=== PATIENT | male | born 1955 | race Caucasian/White ===

== ENCOUNTER → 2017-12-31 09:02 | Outpatient (CLI) | payer OTHER, SELFPAY ==
[2017-12-31 09:29] LABS: Add Manual Diff / Slide Review NO; Basophils Percent Auto 0.3 % (0-2); Eosinophils Percent Auto 2.3 % (2-4); Hematocrit 44.9 % (41-53); Hemoglobin 15.8 g/dL (13.5-17.5); Lymphocytes Percent Auto 27.9 % (25-40); Mean Corpuscular HGB Conc 35.1 % (30-36); Mean Corpuscular Hemoglobin 31.8 PG (26-34); Mean Corpuscular Volume 90.4 fL (80-100); Neutrophils Absolute Auto 2900 /uL (3000-5900); Neutrophils Percent Auto 60.5 % (50-75); Platelet Count 222 X10^3/uL (150-400); Red Blood Cell Count 4.97 X10^6/uL (4.5-5.9); Red Cell Distribution Width 12.9 % (11.6-14.8); White Blood Cell Count 4.8 X10^3/uL (4.5-11.0)
[2017-12-31 10:04] LABS: Alanine Aminotransferase 51 IU/L (21-72); Albumin 4.2 g/dL (3.5-5.0); Albumin Globulin Ratio 1.4 (1.0-2.8); Alkaline Phosphatase 58 U/L (38-126); Aspartate Aminotransferase 33 IU/L (17-59); BUN Creatinine Ratio 17.5 (6-22); Bilirubin Total 1.3 mg/dL (0.2-1.3); Blood Urea Nitrogen 21 mg/dL (9-20); Calcium 9.4 mg/dL (8.4-10.2); Carbon Dioxide 33 mmol/L (22-32); Chloride 104 mmol/L (98-107); Cholesterol 182 mg/dL (140-199); Estimated Glomerular Filt Rate > 60.0 mL/min (>60); Globulin 3.1 g/dL (1.7-4.1); Glucose 101 mg/dL (80-110); HDL Cholesterol 50 mg/dL (40-60); HEMOLYSIS 16 (0-50); LDL Cholesterol Calculated 116 mg/dL (<100); Potassium 5.1 mmol/L (3.4-5.1); Sodium 141 mmol/L (137-145); Total Protein 7.3 g/dL (6.3-8.2); Triglycerides 82 mg/dL (35-150)
[2017-12-31 10:34] LABS: Prostate Specific Antigen Scrn 1.93 ng/mL (0.1-4.0)
[2017-12-31 10:36] LABS: Thyroid Stimulating Hormone 2.62 uIU/mL (0.47-4.68)
== END ==
PROVIDERS: PCP Family Medicine; Visit Provider Family Medicine
DX: E78.2 Mixed hyperlipidemia (principal)
CPT/HCPCS: 36415; 80053; 80061; 84443; 85025; G0103

== ENCOUNTER 2018-04-22 11:41 | Day surgery (SDC) | payer OTHER, SELFPAY ==
[2018-04-22 13:01] VITALS: BP 140/85; PULSE 89; RESP 16; TEMP 36.5; O2SAT 97
--- NOTE | 2018-04-22 14:33 | PM.HP.1 ---
History of Present Illness Date Patient Seen: 04/22/18 Chief complaint: 48002 SCREENING COLONOSCOPY Narrative: 63 y/o male here for colon cancer screening colonoscopy. last colonoscopy 5 yrs ago. patient does not recall having any polyps removed. Patient denies abdominal pain, bloating, melena, blood per rectum, chronic constipation or change in caliber of stools. Patient History Family & Social History Family History: Reviewed 04/22/18 by Stephen Oliveros MD Social History: household members spouse,children other Hiking, photography, music Tobacco & Substance use: Smoking Status Never smoker alcohol intake current alcohol intake frequency a few times a week Meds Home Medications Medication Instructions Recorded Confirmed Type atorvastatin 10 mg tablet 10 mg PO HS #90 tab 12/15/17 04/22/18 Rx citalopram 20 mg tablet 20 mg PO QDAY #90 tab 12/15/17 04/22/18 Rx omeprazole magnesium [Prilosec OTC] 20 mg PO DAILY 04/22/18 04/22/18 History Allergies Allergy/AdvReac Type Severity Reaction Status Date / Time No Known Drug Allergies Allergy Verified 04/22/18 13:07 Review of Systems Review of Systems All systems reviewed & are unremarkable except as noted in HPI and below Exam Vital Signs (past 8 hours): - 04/22/18 13:01 Temperature 97.7 F Pulse Rate 89 Respiratory Rate 16 Blood Pressure 140/85 Pulse Oximetry 97 Oxygen Delivery Method Room Air Const General: cooperative, healthy appearing and comfortable HENMT Head: normal to inspection, normocephalic and atraumatic Neck Neck: supple Resp Effort & Inspection: normal respiratory effort Cardio Rate: regular rate Rhythm: regular rhythm GI Inspection: normal to inspection Palpation: soft Skin General: no rashes or lesions noted Neuro General: alert and awake Cognition: normal cognition Motor: no movement abnormalities noted Psych Appearance: grossly normal Mood: congruent mood Affect: normal affect Thought Process: normal Thought Content: normal Judgment: judgment good Assessment & Plan Plan: Assessment/Plan Narrative: colon cancer interval screening colonoscopy. procedure, benefits, risks including bleeding and perforation reviewed with patient.
[2018-04-22] MEDS: MIDAZOLAM 5 MG/5 ML VIAL IV (14:50)
[2018-04-22] MEDS: diphenhydrAMINE 50 MG/ML VIAL IV (15:05)
[2018-04-22] MEDS: fentaNYL 250 MCG/5 ML INJ IV (15:05)
[2018-04-22 15:31] VITALS: BP 123/83; PULSE 77; RESP 13; TEMP 36.1; O2SAT 96
[2018-04-22 15:35] VITALS: BP 117/83; PULSE 80; RESP 14; O2SAT 96
[2018-04-22 15:40] VITALS: BP 120/81; PULSE 76; RESP 12; O2SAT 96
[2018-04-22 15:45] VITALS: BP 117/78; PULSE 79; RESP 16; O2SAT 96
[2018-04-22 15:55] VITALS: BP 121/75; PULSE 91; RESP 15; O2SAT 95
--- NOTE | 2018-04-22 16:32 | PM.OP.ENDO ---
Operative Date/Time/Diagnoses Date of procedure: 04/22/18 Pre-op diagnosis: colon cancer screening Post-op diagnosis: same Procedure & Clinicians Study performed: Colonoscopy Same procedure as scheduled: Yes Surgeon: Stephen Oliveros Procedure Notes SCOAP/Timeout: done Procedure in detail: Patient reported no problem with prep. Patient taken from preoperative area to endoscopy suite with adequate iv access on guerny. Timeout was performed. IV moderate sedation was titrated throughout the case while patient was continuously monitored. At total of 7mg IV Versed and 150mcg IV fentanyl were required. Inspection of anal orifice revealed no skin lesions. Digital exam failed to palpate any lesions. A well lubricated Fuji colonoscope was gently introduced through the anus and advanced to the cecum using the dither-torque technique. Confirmation of reaching the cecum was acheived by identifying the appendiceal orifice and ileocecal valve. The mucosa was evaluated during the withdrawal of colonoscope. Retroflexion of the endoscope in lower third of rectum revealed mild internal hemorrhoids. Residual insufflation was evacuated. Patient tolerated procedure well and was transferred to PACU in stable condition. Scope withdrawal time: 9 Sedation minutes: 16 Specimen(s): none sent Complications: none Recommendations: Colonscopy in 10 years Disposition: same day surgery
== END 2018-04-22 16:02 | disposition home or self-care (01) ==
LOC: ENDO 11:43
PROVIDERS: PCP Family Medicine; Visit Provider Surgery
PROC: 0DJD8ZZ Inspection of Lower Intestinal Tract, Via Natural or Artificial Opening Endoscopic (ICD-10-PCS; CPT 45378; principal; 2018-04-22 12:45)
DX: Z12.11 Encounter for screening for malignant neoplasm of colon (principal); K64.8 Other hemorrhoids
CPT/HCPCS: 45378; 99152; J1200; J2250; J3010

== ENCOUNTER → 2019-07-18 07:47 | Outpatient (CLI) | payer OTHER, SELFPAY ==
[2019-07-18 08:38] LABS: Add Manual Diff / Slide Review NO; Basophils Absolute Auto 0 /uL (0-100); Basophils Percent Auto 0.3 % (0-2); Eosinophils Absolute Auto 100 /uL (0-450); Eosinophils Percent Auto 2.1 % (2-4); Hematocrit 45.6 % (41-53); Hemoglobin 15.8 g/dL (13.5-17.5); Lymphocytes Absolute Auto 1900 /uL (1100-4500); Lymphocytes Percent Auto 31.4 % (25-40); Mean Corpuscular HGB Conc 34.5 % (30-36); Mean Corpuscular Hemoglobin 31.1 PG (26-34); Monocytes Absolute Auto 600 /uL (0-900); Neutrophils Absolute Auto 3500 /uL (1500-7000); Neutrophils Percent Auto 56.2 % (50-75); Platelet Count 239 X10^3/uL (150-400); Red Blood Cell Count 5.06 X10^6/uL (4.5-5.9); Red Cell Distribution Width 13.4 % (11.6-14.8); White Blood Cell Count 6.2 X10^3/uL (4.5-11.0)
[2019-07-18 08:44] LABS: Alanine Aminotransferase 53 IU/L (<50); Albumin 4.3 g/dL (3.5-5.0); Albumin Globulin Ratio 1.3 (1.0-2.8); Alkaline Phosphatase 65 U/L (38-126); Aspartate Aminotransferase 33 IU/L (17-59); BUN Creatinine Ratio 14.6 (6-22); Bilirubin Total 1.2 mg/dL (0.2-1.3); Blood Urea Nitrogen 19 mg/dL (9-20); Calcium 9.4 mg/dL (8.4-10.2); Carbon Dioxide 29 mmol/L (22-32); Chloride 103 mmol/L (98-107); Cholesterol 179 mg/dL (140-199); Estimated Glomerular Filt Rate 55.9 mL/min (>60); Globulin 3.4 g/dL (1.7-4.1); Glucose 109 mg/dL (80-110); HDL Cholesterol 40 mg/dL (40-60); HEMOLYSIS < 15 (0-50); LDL Cholesterol Calculated 108 mg/dL (<100); Potassium 4.1 mmol/L (3.4-5.1); Sodium 140 mmol/L (137-145); Total Protein 7.7 g/dL (6.3-8.2); Triglycerides 154 mg/dL (35-150)
[2019-07-18 09:08] LABS: Prostate Specific Antigen Scrn 2.16 ng/mL (0.1-4.0)
[2019-07-18 09:19] LABS: Thyroid Stimulating Hormone 2.96 uIU/mL (0.47-4.68)
== END ==
PROVIDERS: PCP Family Medicine; Referring Provider Family Medicine; Visit Provider Family Medicine
DX: E78.2 Mixed hyperlipidemia (principal)
CPT/HCPCS: 36415; 80053; 80061; 84443; 85025; G0103

== ENCOUNTER → 2020-09-13 16:12 | Outpatient (CLI) | payer OTHER, SELFPAY ==
[2020-09-13] MEDS: COVID-19 VACC #1, MRNA(MOD) 100 MCG/0.5 ML VIAL IM (16:15)
== END ==
PROVIDERS: PCP Family Medicine; Visit Provider Internal Medicine
DX: Z23 Encounter for immunization (principal)
CPT/HCPCS: 0011A; 91301

== ENCOUNTER → 2020-10-11 15:13 | Outpatient (CLI) | payer OTHER, SELFPAY ==
[2020-10-11] MEDS: COVID-19 VACC #2, MRNA(MOD) 100 MCG/0.5 ML VIAL IM (15:16)
== END ==
PROVIDERS: PCP Family Medicine; Visit Provider Internal Medicine
DX: Z23 Encounter for immunization (principal)
CPT/HCPCS: 0012A; 91301

== ENCOUNTER → 2020-11-16 09:32 | Outpatient (CLI) | payer OTHER, SELFPAY ==
[2020-11-16 10:30] LABS: Add Manual Diff / Slide Review NO; Basophils Absolute Auto 0 /uL (0-100); Basophils Percent Auto 0.1 % (0-2); Eosinophils Absolute Auto 100 /uL (0-450); Eosinophils Percent Auto 2.2 % (2-4); Hematocrit 48.7 % (41-53); Lymphocytes Absolute Auto 1800 /uL (1100-4500); Lymphocytes Percent Auto 32.2 % (25-40); Mean Corpuscular Hemoglobin 30.2 PG (26-34); Mean Corpuscular Volume 91.8 fL (80-100); Monocytes Absolute Auto 600 /uL (0-900); Monocytes Percent Auto 10.2 % (3-14); Neutrophils Absolute Auto 3100 /uL (1500-7000); Neutrophils Percent Auto 55.3 % (50-75); Platelet Count 239 X10^3/uL (150-400); Red Blood Cell Count 5.31 X10^6/uL (4.5-5.9); Red Cell Distribution Width 13.3 % (11.6-14.8); White Blood Cell Count 5.7 X10^3/uL (4.5-11.0)
[2020-11-16 10:41] LABS: Hemoglobin A1C% w Est Avg Glu 5.5 % (4.0-6.0)
[2020-11-16 10:52] LABS: Alanine Aminotransferase 42 IU/L (<50); Albumin 4.3 g/dL (3.5-5.0); Albumin Globulin Ratio 1.4 (1.0-2.8); Alkaline Phosphatase 70 U/L (38-126); Aspartate Aminotransferase 30 IU/L (17-59); BUN Creatinine Ratio 16.7 (6-22); Bilirubin Total 1.2 mg/dL (0.2-1.3); Blood Urea Nitrogen 21 mg/dL (9-20); Calcium 9.9 mg/dL (8.4-10.2); Carbon Dioxide 27 mmol/L (22-32); Chloride 105 mmol/L (98-107); Cholesterol 177 mg/dL (140-199); Estimated Glomerular Filt Rate 57.8 mL/min (>60); Globulin 3.1 g/dL (1.7-4.1); Glucose 95 mg/dL (80-110); HDL Cholesterol 53 mg/dL (40-60); HEMOLYSIS < 15 (0-50); LDL Cholesterol Calculated 97 mg/dL (<100); Potassium 4.6 mmol/L (3.4-5.1); Sodium 138 mmol/L (137-145); Total Protein 7.4 g/dL (6.3-8.2); Triglycerides 135 mg/dL (35-150)
[2020-11-16 11:16] LABS: TSH w/ Reflex to FT4 1.93 uIU/mL (0.47-4.68)
== END ==
PROVIDERS: PCP Family Medicine; Referring Provider Family Medicine; Visit Provider Family Medicine
DX: E78.2 Mixed hyperlipidemia (principal); F34.1 Dysthymic disorder; N53.9 Unspecified male sexual dysfunction; Z12.5 Encounter for screening for malignant neoplasm of prostate
CPT/HCPCS: 36415; 80053; 80061; 83036; 84443; 85025; G0103

== ENCOUNTER → 2022-02-28 08:59 | Outpatient (CLI) | payer OTHER, SELFPAY ==
[2022-02-28 10:02] LABS: Add Manual Diff / Slide Review NO; Basophils Absolute Auto 0 /uL (0-100); Basophils Percent Auto 0.3 % (0-2); Eosinophils Absolute Auto 300 /uL (0-450); Eosinophils Percent Auto 5.2 % (2-4); Hematocrit 45.9 % (41-53); Hemoglobin 15.9 g/dL (13.5-17.5); Lymphocytes Absolute Auto 1800 /uL (1100-4500); Lymphocytes Percent Auto 29.2 % (25-40); Mean Corpuscular HGB Conc 34.7 % (30-36); Mean Corpuscular Volume 89.5 fL (80-100); Monocytes Absolute Auto 600 /uL (0-900); Monocytes Percent Auto 9.8 % (3-14); Neutrophils Absolute Auto 3300 /uL (1500-7000); Neutrophils Percent Auto 55.5 % (50-75); Platelet Count 231 X10^3/uL (150-400); Red Blood Cell Count 5.13 X10^6/uL (4.5-5.9); Red Cell Distribution Width 13.2 % (11.6-14.8)
[2022-02-28 10:38] LABS: Alanine Aminotransferase 36 IU/L (<50); Albumin 4.1 g/dL (3.5-5.0); Albumin Globulin Ratio 1.3 (1.0-2.8); Alkaline Phosphatase 70 U/L (38-126); Aspartate Aminotransferase 28 IU/L (17-59); BUN Creatinine Ratio 16.1 (6-22); Bilirubin Total 1.4 mg/dL (0.2-1.3); Blood Urea Nitrogen 20 mg/dL (9-20); Carbon Dioxide 27 mmol/L (22-32); Chloride 104 mmol/L (98-107); Cholesterol 183 mg/dL (140-199); Estimated Glomerular Filt Rate > 60 mL/min (>60); Globulin 3.1 g/dL (1.7-4.1); Glucose 85 mg/dL (80-110); HDL Cholesterol 46 mg/dL (40-60); HEMOLYSIS < 15 (0-50); LDL Cholesterol Calculated 109 mg/dL (<100); Potassium 4.6 mmol/L (3.4-5.1); Sodium 140 mmol/L (137-145); Total Protein 7.2 g/dL (6.3-8.2); Triglycerides 138 mg/dL (35-150)
[2022-02-28 10:39] LABS: Creatinine Urine Random 148.6 mg/dL
[2022-02-28 10:48] LABS: Microalbumin Urine Random 0.6 mg/dL (0-1.6)
[2022-02-28 11:09] LABS: Prostate Specific Antigen Scrn 2.07 ng/mL (0.1-4.0)
== END ==
PROVIDERS: PCP Family Medicine; Referring Provider Family Medicine; Visit Provider Family Medicine
DX: E78.2 Mixed hyperlipidemia (principal); F34.1 Dysthymic disorder; F90.0 Attention-deficit hyperactivity disorder, predominantly inattentive type; R94.4 Abnormal results of kidney function studies; Z12.5 Encounter for screening for malignant neoplasm of prostate
CPT/HCPCS: 36415; 80053; 80061; 82043; 82570; 85025; G0103

== ENCOUNTER → 2023-10-30 13:27 | Outpatient (CLI) | payer OTHER, SELFPAY ==
--- NOTE | 2023-10-30 13:30 | DI.ECHO.S_ITS ---
[facility]+ [facility] : : [address] : : [place] : : [id number] : : Phone: [phone] Echocardiogram Report + + :Name: AJITH MORAN Study Date: 10/30/2023 Height: 72 in : :Hospital ReadingLocation: Weight: 239 lb : : Gender: Male BSA: 2.3 m2 : :: 1955 Age: 68 yrs BP: 133/84 mmHg: :Reason For Study: MUMUR : :Ordering Physician: OSMEL, : :BRO Performed By: Claribel Leyva : :Referring: BRO BOLIVAR : + + Interpretation Summary 1. The left ventricular contractility is normal. Estimated ejection fraction is greater than 60% with no segmental wall motion abnormalities. Grade 1 diastolic dysfunction noted. Mild concentric left ventricular hypertrophy present. 2. The right ventricular contractility is normal. 3. The right ventricle appears to be borderline enlarged. All other cardiac chambers are of normal size. 4. The aortic valve was not well-visualized. There is mild fibrocalcific changes noted. Mild aortic valvular stenosis with mean gradient 22 mmHg present. Mild aortic insufficiency noted. 5. No obvious intracardiac shunts noted. 6. No obvious intracardiac masses nor thrombi appreciated. 7. No hemodynamically significant pericardial effusion identified. Conclusion: Normal biventricular systolic function with mild combined aortic insufficiency and stenosis. Procedure: A two-dimensional transthoracic echocardiogram with color flow and Doppler was performed. The study quality was technically adequate. There is no prior echocardiogram noted for this patient. The patient was in sinus rhythm with heart rates between 67-75 bpm during the exam. Left Ventricle: The left ventricle is normal in size. Left ventricular wall thickness is mildly increased. The ejection fraction is estimated to be 60- 65%. Right Ventricle: The right ventricle is borderline dilated. The right ventricular systolic function is normal. Atria: The left atrial size is normal. Right atrial size is normal. There is no Doppler evidence for an interatrial shunt. Mitral Valve: The mitral valve is normal in structure and function. There is trace mitral regurgitation. Aortic Valve: The aortic valve is mildly calcified. The aortic valve is not well visualized. The peak aortic velocity is 3.1 m/sec. The aortic valve mean gradient is 22 mmHg. The calculated aortic valve area is 1.1 cm2. There is mild aortic regurgitation. Tricuspid Valve: The tricuspid valve is not well visualized, but is grossly normal. Pulmonary artery pressures cannot be estimated because of the lack of a measurable TR jet velocity. There is a trace or physiologic amount of tricuspid regurgitation. Pulmonic Valve: The pulmonic valve leaflets are thin and pliable; valve motion is normal. There is no pulmonic valvular regurgitation. Great Vessels: The aortic root is normal size. The dimensions of the ascending aorta are normal. The IVC is of normal diameter and collapses greater than 50% with a sniff. This suggests a low right atrial pressure of 3 mm Hg. Pericardium/ Pleura There is no pericardial effusion. There is an anterior echo-free space consistent with a fat pad. There is no pleural effusion. MMode/2D Measurements & Calculations LVIDd: 4.9 cm LVOT diam: 2.0 cm LVIDs: 3.1 cm Ao root diam: 3.7 cm FS: 37.2 % asc Aorta Diam: 3.1 cm IVSd: 1.1 cm Ao Arch Diam (Prox Trans): 2.9 cm LVPWd: 1.1 cm LV glasgow. diameter/BSA (cm/m^2): 2.1 LV sys. diameter/BSA (cm/m^2): 1.3 LA A2 area: 16.3 cm2 RA long axis: 3.8 cm LA A4 area: 12.2 cm2 RA area: 10.4 cm2 LA length (vol): 4.1 cm RA vol: 23.9 ml LA vol: 40.7 ml RA : 10.4 ml/m2 LA vol index: 17.7 ml/m2 IVC diam: 1.1 cm RVD1 (basal): 4.2 cm RVD2 (mid): 3.6 cm TAPSE: 2.5 cm Doppler Measurements & Calculations Ao V2 max: 309.1 cm/sec LVOT Max Madhav: 107.6 cm/sec Ao V2 mean: 211.5 cm/sec LV V1 max P.6 mmHg Ao max P.9 mmHg LV V1 VTI: 24.3 cm Ao mean P.2 mmHg ZHANG(I,D): 1.2 cm2 Ao V2 VTI: 64.3 cm ZHANG(V,D): 1.1 cm2 sev ratio: 0.38 ZHANG indexed to BSA (cm^2/m^2): 0.52 MV E max madhav: 66.3 cm/sec PA V2 max: 90.4 cm/sec MV A max madhav: 85.2 cm/sec PA V2 mean: 65.9 cm/sec MV E/A: 0.78 PA mean P.9 mmHg Med Peak E' Madhav: 5.1 cm/sec PA pr(Accel): 39.6 mmHg E/E' med: 13.1 Lat Peak E' Madhav: 6.0 cm/sec E/E' lat: 11.0 E/e' average: 12.1 MV dec time: 0.27 sec SV(LVOT): 77.2 ml Reading Physician:
== END ==
PROVIDERS: PCP Family Medicine; Referring Provider Family Medicine; Visit Provider Family Medicine
DX: Z82.49 Family history of ischemic heart disease and other diseases of the circulatory system (principal); I35.1 Nonrheumatic aortic (valve) insufficiency
CPT/HCPCS: 93306

== ENCOUNTER → 2023-11-11 08:02 | Outpatient (CLI) | payer OTHER, SELFPAY ==
[2023-11-11 09:00] LABS: Add Manual Diff / Slide Review NO; Basophils Absolute Auto 0 /uL (0-100); Basophils Percent Auto 0.3 % (0-2); Eosinophils Absolute Auto 200 /uL (0-450); Eosinophils Percent Auto 3.9 % (2-4); Hematocrit 46.5 % (41-53); Hemoglobin 15.7 g/dL (13.5-17.5); Lymphocytes Absolute Auto 1700 /uL (1100-4500); Lymphocytes Percent Auto 30.1 % (25-40); Mean Corpuscular HGB Conc 33.7 % (30-36); Mean Corpuscular Hemoglobin 31.1 PG (26-34); Mean Corpuscular Volume 92.4 fL (80-100); Monocytes Absolute Auto 600 /uL (0-900); Monocytes Percent Auto 9.8 % (3-14); Neutrophils Absolute Auto 3200 /uL (1500-7000); Neutrophils Percent Auto 55.9 % (50-75); Platelet Count 247 X10^3/uL (150-400); Red Blood Cell Count 5.03 X10^6/uL (4.5-5.9); Red Cell Distribution Width 13.1 % (11.6-14.8); White Blood Cell Count 5.6 X10^3/uL (4.5-11.0)
[2023-11-11 09:31] LABS: Alanine Aminotransferase 33 IU/L (<50); Albumin 4.2 g/dL (3.5-5.0); Albumin Globulin Ratio 1.6 (1.0-2.8); Alkaline Phosphatase 59 U/L (38-126); Aspartate Aminotransferase 26 IU/L (17-59); BUN Creatinine Ratio 12.4 (6-22); Bilirubin Total 1.4 mg/dL (0.2-1.3); Blood Urea Nitrogen 16 mg/dL (9-20); Calcium 9.2 mg/dL (8.4-10.2); Carbon Dioxide 30 mmol/L (22-32); Chloride 108 mmol/L (98-107); Cholesterol 150 mg/dL (140-199); Estimated Glomerular Filt Rate > 60 mL/min (>60); Globulin 2.7 g/dL (1.7-4.1); Glucose 101 mg/dL (80-110); HDL Cholesterol 55 mg/dL (40-60); HEMOLYSIS < 15 (0-50); LDL Cholesterol Calculated 73 mg/dL (<100); Sodium 140 mmol/L (137-145); Total Protein 6.9 g/dL (6.3-8.2); Triglycerides 111 mg/dL (35-150)
[2023-11-11 09:32] LABS: Potassium 5.4 mmol/L (3.4-5.1)
[2023-11-11 09:55] LABS: TSH w/ Reflex to FT4 1.78 uIU/mL (0.47-4.68)
[2023-11-11 10:04] LABS: Prostate Specific Antigen Scrn 1.88 ng/mL (0.1-4.0)
[2023-11-12 03:10] LABS: Apolipoprotein B 69 mg/dL (<90)
[2023-11-12 15:52] LABS: Hep C Virus Ab w/Reflex Quant NEGATIVE s/c (NEGATIVE)
[2023-11-14 04:54] LABS: Lipoprotein (a) 129.2 nmol/L (<75.0)
== END ==
PROVIDERS: PCP Family Medicine; Referring Provider Family Medicine; Visit Provider Family Medicine
DX: Z12.5 Encounter for screening for malignant neoplasm of prostate (principal); Z12.11 Encounter for screening for malignant neoplasm of colon; F90.9 Attention-deficit hyperactivity disorder, unspecified type; E78.2 Mixed hyperlipidemia; Z80.0 Family history of malignant neoplasm of digestive organs; Z82.49 Family history of ischemic heart disease and other diseases of the circulatory system; F84.0 Autistic disorder
CPT/HCPCS: 36415; 80053; 80061; 82172; 83695; 84443; 85025; 86803; G0103

== ENCOUNTER 2024-09-16 22:57 | Emergency (ER) | payer OTHER, SELFPAY ==
[2024-09-16 23:00] VITALS: BP 156/78; PULSE 89; RESP 17; TEMP 36.7; O2SAT 96; BMI 31.4
--- NOTE | 2024-09-16 23:22 | DI.CT.S_ITS ---
PROCEDURE: CT HEAD/BRAIN WO CON INDICATIONS: fall, facial trauma, damaged teeth TECHNIQUE: Noncontrast 4.5 mm thick angled axial sections acquired from the foramen magnum to the vertex, with coronal and sagittal reformats. For radiation dose reduction, the following was used: automated exposure control, adjustment of mA and/or kV according to patient size. COMPARISON: None. FINDINGS: Image quality: Diagnostic. CSF spaces: Basal cisterns are patent. No extra-axial fluid collections. Ventricles are normal in size and shape. Brain: No midline shift. No intracranial masses or hemorrhage. Doll-white matter interface is normal. Skull and face: Calvarium and visualized facial bones are intact, without suspicious lesions. Sinuses: Visualized sinuses and mastoids are clear. IMPRESSION: 1. No CT evidence of acute intracranial trauma. 2. No significant soft tissue injury or underlying fracture. Dictated by: La Jane M.D. on 09/17/2024 at 0:13 Approved by: La Jane M.D. on 09/17/2024 at 0:14
--- NOTE | 2024-09-16 23:22 | DI.CT.S_ITS ---
PROCEDURE: CT FACIAL BONES WO CON INDICATIONS: fall, facial trauma, damaged teeth TECHNIQUE: Noncontrast 2.5 mm thick axial images acquired from the mandible through the frontal sinuses, with coronal and sagittal reformatting. For radiation dose reduction, the following was used: automated exposure control, adjustment of mA and/or kV according to patient size. COMPARISON: None. FINDINGS: Image quality: Excellent. Bones and teeth: There is fracture of the caudal most portion at base of the anterior maxillary spine involving the roots of the medial maxillary incisors. The right medial maxillary incisor is fractured. Nasal bones and nasal septum are intact. There is chronic leftward deviation in the midportion. No occlusion nasal passages. Orbital noble are intact. Sinus noble show no fracture or deformity. Visualized portions of the mandible demonstrate no fractures or subluxation. Zygomatic arches are intact. Pterygoid plates are intact. Visualized portions of the skull base and auditory canals are intact. Sinuses: Paranasal sinuses are aerated, without fluid levels, mucosal thickening, or mucoceles. Mastoid air cells are aerated. Soft tissues: There is a soft tissue laceration defect over the anterior maxilla without adjacent fluid collection. No debris. No edema, masses, or fluid collections. No enlarged lymph nodes. Vascular: Visualized vascular structures appear normal in the absence of contrast. Bony vascular foramina and canals are intact. IMPRESSION: Anterior maxillary spine base fracture extending to the roots the maxillary incisors. Soft tissue defect without underlying radiodense foreign body. Dictated by: La Jane M.D. on 09/17/2024 at 0:36 Approved by: La Jane M.D. on 09/17/2024 at 0:43
--- NOTE | 2024-09-16 23:22 | DI.CT.S_ITS ---
PROCEDURE: CT CERVICAL SPINE WO CON INDICATIONS: fall, facial trauma, damaged teeth TECHNIQUE: Noncontrast 3 mm thick sections acquired from the skull base to the T4 level. Sagittal and coronal reformats were then constructed. For radiation dose reduction, the following was used: automated exposure control, adjustment of mA and/or kV according to patient size. COMPARISON: None. FINDINGS: Image quality: Excellent. Bones: The craniocervical junction is intact. Mild degenerative space loss and spurring at the atlantodental interval. Degenerative disc height loss from C4 through C7. Mild endplate osteophytes. No cervical vertebral body fractures or pathologic subluxation. Soft tissues: Prevertebral soft tissues are normal in thickness. No paravertebral hematomas. No apical pneumothoraces. IMPRESSION: No displaced fracture or traumatic subluxation. Dictated by: La Jane M.D. on 09/17/2024 at 1:12 Approved by: La Jane M.D. on 09/17/2024 at 1:14
[2024-09-17] VITALS (11 sets, daily range): BP systolic 103–142; BP diastolic 68–78; PULSE 83–112; RESP 18; O2SAT 92–98
--- NOTE | 2024-09-17 03:17 | PC.NURSE ---
Pt left hand has on the lateral edge some non-bleeding abrasions. Long upper lip (philtrum) wound. Both areas are open to air and patient has slight pain, with swelling. Dental issues resulted from the fall. Tooth #8 is chipped and dangling in place. Tooth #9 is slightly pulled from the root.
--- NOTE | 2024-09-17 05:01 | ED_ITS ---
HPI - Fall General Chief Complaint: Fall Stated Complaint: fell faceplanted on sidewalk Time Seen by Provider: 09/17/24 05:00 Source: patient, RN notes reviewed and old records reviewed Mode of arrival: Ambulatory Limitations: no limitations History of Present Illness HPI Narrative: 69-year-old male history of dyslipidemia, ADHD who states he tripped and fell on his face messing up his teeth. Denies any loss of consciousness. Denies any neck pain. Patient states mostly pain in the tooth nose and upper lip. Patient states he was some abrasions on his hands but no other injuries. Denies any chest pain or shortness of breath or back pain. No other GI or urinary symptoms. Patient states he is unsure if his tetanus is up-to-date. Does not take any aspirin or anticoagulants. Patient states he does have a dentist but has not seen him in a long time. Denies any allergies to medications. No tobacco, occasional alcohol, no recreational drugs. Related Data Home Medications Medication Instructions Recorded Confirmed citalopram 20 mg tablet (Celexa) 20 mg PO DAILY 07/19/24 07/19/24 Previous Rx's Medication Instructions Recorded atorvastatin 10 mg tablet 10 mg PO QPM #90 tabs 01/18/24 citalopram 10 mg tablet See Rx Instructions .Route 06/13/24 .COMPLEX #90 tabs bupropion HCl 150 mg 24 hr tablet, 150 mg PO QAM #90 tabs 07/19/24 extended release dextroamphetamine-amphetamine 5 mg 5 mg PO DAILY PRN adhd #90 tabs 07/19/24 tablet (Adderall) dextroamphetamine-amphetamine ER 20 mg PO DAILY #30 caps 09/02/24 20 mg 24hr capsule,extend release (Adderall XR) amoxicillin 875 mg-potassium 1 tab PO BID #20 tabs 09/17/24 clavulanate 125 mg tablet Allergies Allergy/AdvReac Type Severity Reaction Status Date / Time No Known Drug Allergies Allergy Verified 07/19/24 08:58 Review of Systems Review of Systems ROS Unobtainable: All systems reviewed & are unremarkable except as noted in HPI and below Patient History Medical History Diastolic dysfunction Aortic stenosis Family hx of colon cancer ADHD GERD (gastroesophageal reflux disease) Family History Mother Cancer Father Congestive heart failure Diabetes mellitus Family/Other Cancer Father Diabetes mellitus Heart disease Mother Cancer Social History number of children: 2 household members: spouse and children pets and animals: No education level: college 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 travel history: other other: Hiking, photography, music seatbelt use: always water heater temp set < 120 deg: Yes working smoke detector in home: Yes fire extinguisher in home: No carbon monox detector in home: No firearms in home: No Smoking Status: Never smoker second hand exposure: Yes (childhood ) alcohol intake: current (3 drinks per week ) substance use type: does not use during the past year weight has: decreased > 10 lbs well-balanced diet: daily or most days daily servings fruits/ve-4 caffeine: Yes (2+ caffeine drinks per day) eating out: 1-3 times/week Type(s) of exercise: walking frequency: daily duration: 30-45 minutes/day Smoking Status: Never smoker alcohol intake frequency: a few times a week Exam Narrative Exam Narrative: GEN: Patient appears in mild distress. HEAD: No evidence of trauma, no raccoon/Jorge sign. NECK: Nontender, painless range of motion, trachea midline Negative Nexus criteria, no midline line tenderness, distracting injury, altered mental status, neuro deficit, recent EtOH. EYES: PERRLA, EOMI ENT: External inspection normal, trachea is midline, TM's are normal no hemotypanum, Nares are clear, no septal hematoma, tooth number 8, is chipped still hanging by a thread, tooth 9 appears to be intact. Patient does not have any other bony tenderness. Has some slight wiggle but actually is fairly stable on exam, patient has a laceration of the philtrum unclear if it is truly laceration versus if he just has a deficit of the tissue that is vertical but does not go all the way through. Airway is normal and with normal occlusion, No bony tenderness RESP: Chest is nontender and has symmetric movement, no ecchymosis, breath sounds are normal no crackles, wheezes or rales CVS: Heart sounds are normal, no murmur noted, No JVD. ABG/GI: Nontender, soft, normal bowel sounds, no distention, no organomegaly. NEURO: Oriented AOx3, neuro is grossly intact, sensation and motor is normal all 4 extremities moving, cranial nerves II through XII are intact, GCS is 15 PSYCH: Normal mood and affect SKIN: Patient has a abrasions of his hands and forearms. Warm and dry, no crepitus and without decubitus BACK: No CVA tenderness, no vertebral tenderness, no step-off's, no crepitus EXT: Atraumatic, hips are nontender, no pedal edema, normal range of motion. Normal gait. Initial Vital Signs Initial Vital Signs: Vital Signs Temperature 98.0 F 09/16/24 23:00 Pulse Rate 89 09/16/24 23:00 Respiratory Rate 17 09/16/24 23:00 Blood Pressure 156/78 H 09/16/24 23:00 Pulse Oximetry 96 09/16/24 23:00 Oxygen Delivery Method Room Air 09/16/24 23:00 Procedures Laceration Repair Laceration 1: Site: lip Size (cm): 3.1 Description: stellate, flap and irregular Depth: simple, single layer and involves muscle layer Local Anesthetic: lidocaine 1% Amount of anesthesia used (mL): 6 Pre-repair: wound explored, irrigated extensively and deep structures intact Skin layer closed with: vicryl Skin layer suture size: 5-0 Number of sutures: 14 Technique: simple, interrupted Subcutaneous layer closed with: vicryl Subcutaneous layer suture size: 5-0 Number of sutures: 1 Course Orders Ordered: Discontinued Medications Amoxicillin/Clavulanate Potassium (Amoxicillin/Clav 875/125 Mg) 1 tab PO NOW ONE Stop: 09/17/24 07:11 Last Admin: 09/17/24 07:17 Dose: 1 tab Documented By: AB Diphtheria/Tetanus/Acell Pertussis (Tet,Diph,Pertuss(Acell),Vac/Pf 0.5 Ml Syringe) 0.5 ml IM .ONCE ONE Stop: 09/17/24 05:12 Last Admin: 09/17/24 05:19 Dose: 0.5 ml Documented By: AB Lidocaine/Prilocaine (Lidocaine/Prilocaine 5 Gm) 5 gm TOP NOW ONE Stop: 09/17/24 05:12 Last Admin: 09/17/24 05:19 Dose: 5 gm Documented By: AB Vital Signs Vital signs: Vital Signs - 8 hr 09/17/24 03:03 09/17/24 03:08 09/17/24 03:09 Pulse Rate 112 H 103 H Respiratory Rate 18 Blood Pressure 142/77 H 129/78 Pulse Oximetry 98 98 Oxygen Delivery Method Room Air 09/17/24 03:09 09/17/24 03:30 09/17/24 03:30 Pulse Rate 103 H 92 H Respiratory Rate Blood Pressure 116/74 Pulse Oximetry 98 Oxygen Delivery Method Room Air 09/17/24 04:00 09/17/24 04:00 09/17/24 04:30 Pulse Rate 95 H Respiratory Rate Blood Pressure 103/68 122/75 Pulse Oximetry 92 Oxygen Delivery Method 09/17/24 04:30 Pulse Rate 93 H Respiratory Rate Blood Pressure Pulse Oximetry 94 Oxygen Delivery Method MDM - Fall MDM Narrative Medical decision making narrative: Head CT shows no acute change. Facial bone CT shows anterior maxillary spine base fracture extending to the roots of the maxillary incisors. The right medial maxillary incisor is fractured. Soft tissue defect without underlying radiodense foreign body. CT cervical spine shows no displaced fracture or traumatic subluxation. AMBER, Dr. Donovan not in area currently. Covering surgery Dr. Ferguson does not take call for hospitals. Patient technically has open fracture. Discussed with the patient his laceration has a little bit more of loss of the tissue but we will see if we pull it together has some improvement. We will cover with an oral antibiotic. Patient tolerated repair well, discussed with patient we will scar vermilion border as it heals if very prominent or scarring is not patient's liking would recommend follow up with ENT/facial plastics for revision as needed. Attempted to splint patient's tooth it is sort of partially split. Unfortunately are dental box does not have all of the supplies. Attempted splits but was not the proper material and was unsuccessful. Patient defers attempting again and we will reach out to Dentistry today. Discharge Plan Departure Patient Disposition: Home Clinical Impression: Fracture of tooth, Laceration of upper lip, complicated Activity Restrictions/Additional Instructions: Please follow up with a dentist today if you are able or Dr. Donovan he was with [facility], he should be back on Thursday. You have not anterior maxillary spine base fracture extending to the roots of the maxillary incisors. The right medial maxillary incisor (tooth) is fractured. There are no other facial bone fractures. Continue with a soft diet until you are seen. Take oral antibiotics until completed. Follow up for evaluation of the laceration of your upper lip as it starts to heal we will scar, I if he would like you can follow up with ENT for potential revision. Contacts included below call Thursday morning for an appointment. Please return for any new or worsening changes. Prescriptions: New amoxicillin-pot clavulanate 875-125 mg tablet 1 tab PO BID Qty: 20 0RF No Action atorvastatin 10 mg tablet 10 mg PO QPM Qty: 90 3RF citalopram 10 mg tablet See Rx Instructions .ROUTE .COMPLEX Qty: 90 3RF Dose Instruction: take 1 tablet by mouth once daily Rx Instructions: take 1 tablet by mouth once daily dextroamphetamine-amphetamine [Adderall XR] 20 mg capsule,extended release 24hr 20 mg PO DAILY Qty: 30 0RF citalopram [Celexa] 20 mg tablet 20 mg PO DAILY bupropion HCl 150 mg tablet extended release 24 hr 150 mg PO QAM Qty: 90 1RF dextroamphetamine-amphetamine [Adderall] 5 mg tablet 5 mg PO DAILY PRN (Reason: adhd) Qty: 90 0RF Rx Instructions: administer doses at least 4-6 hours apart Referrals: Ravi Donovan DMD [Physician] - Eliceo Craig MD [Primary Care Provider] - Cristino Madison MD [Physician] - Stand Alone Forms: Patient Portal/API/Survey
[2024-09-17] MEDS: LIDOCAINE/PRILOCAINE 5 GM TOP (05:19)
[2024-09-17] MEDS: TET,DIPH,PERTUSS(ACELL),VAC/PF 0.5 ML SYRINGE IM (05:19)
[2024-09-17] MEDS: AMOXICILLIN/CLAV 875/125 MG 1 TAB PO (07:17)
== END 2024-09-17 07:22 | disposition home or self-care (01) ==
PROVIDERS: Emergency Provider Emergency Medicine; PCP Family Medicine
DX: S02.5XXA Fracture of tooth (traumatic), initial encounter for closed fracture (principal); S01.511A Laceration without foreign body of lip, initial encounter; W01.0XXA Fall on same level from slipping, tripping and stumbling without subsequent striking against object, initial encounter; Z23 Encounter for immunization
CPT/HCPCS: 12013; 70450; 70486; 72125; 90471; 99283; 99284; 90715

== ENCOUNTER → 2024-12-27 07:24 | Outpatient (CLI) | payer OTHER, SELFPAY ==
[2024-12-27 08:08] LABS: Hematocrit 47.8 % (41-53); Hemoglobin 16.5 g/dL (13.5-17.5); Lymphocytes Absolute Auto 1600 /uL (1100-4500); Mean Corpuscular HGB Conc 34.4 % (30-36); Mean Corpuscular Hemoglobin 31.9 PG (26-34); Mean Corpuscular Volume 92.8 fL (80-100); Platelet Count 256 X10^3/uL (150-400)
[2024-12-27 08:11] LABS: Alanine Aminotransferase 21 IU/L (<50); Albumin 4.4 g/dL (3.5-5.0); Albumin Globulin Ratio 1.5 (1.0-2.8); Alkaline Phosphatase 69 U/L (38-126); Blood Urea Nitrogen 17 mg/dL (9-20); Calcium 9.8 mg/dL (8.4-10.2); Carbon Dioxide 28 mmol/L (22-32); Chloride 105 mmol/L (98-107); Cholesterol 173 mg/dL (140-199); Estimated Glomerular Filt Rate > 60 mL/min (>60); Globulin 3.0 g/dL (1.7-4.1); Glucose 92 mg/dL (70-99); HDL Cholesterol 63 mg/dL (40-60); HEMOLYSIS < 15 (0-50); Potassium 4.8 mmol/L (3.4-5.1); Sodium 138 mmol/L (137-145); Total Protein 7.4 g/dL (6.3-8.2); Triglycerides 109 mg/dL (35-150)
[2024-12-27 08:26] LABS: Add Manual Diff / Slide Review SLIDE REVIEW
[2024-12-27 08:40] LABS: TSH w/ Reflex to FT4 2.26 uIU/mL (0.47-4.68)
== END ==
PROVIDERS: PCP Family Medicine; Referring Provider Family Medicine; Visit Provider Family Medicine
DX: Z12.5 Encounter for screening for malignant neoplasm of prostate (principal); I35.0 Nonrheumatic aortic (valve) stenosis; E78.2 Mixed hyperlipidemia; E87.5 Hyperkalemia; F41.9 Anxiety disorder, unspecified; F90.9 Attention-deficit hyperactivity disorder, unspecified type; F84.0 Autistic disorder
CPT/HCPCS: 36415; 80053; 80061; 82172; 84443; 85025; G0103